=== PATIENT | female | born 1985 | race Caucasian/White ===

== ENCOUNTER 2019-06-17 11:44 | Emergency (ER) | payer MEDICAID ==
[~2019-06-17] VITALS: Ht 157.5 cm; Wt 46.4 kg
[~2019-06-17 11:44] MED LIST: DOCU-144 PO; IBUP-1561 PO
[2019-06-17 12:13] VITALS: BP 118/59; PULSE 76; RESP 20; Ht 157.5 cm; Wt 46.4 kg
[2019-06-17] MEDS ORDERED: ACETAMINOPHEN 500 MG TAB PO STA (13:30)
[2019-06-17] MEDS ORDERED: AZITHROMYCIN 500 MG TAB PO ONE (17:00)
[2019-06-17] MEDS ORDERED: CEFTRIAXONE 250 MG INJ IM ONE (17:00)
[2019-06-17] MEDS ORDERED: LIDOCAINE 1% (MDV) 20 ML INJ SC ONE (17:00)
== END 2019-06-17 17:38 | disposition home or self-care (01) ==
LOC: FTE 11:44
DX: R10.32 Left lower quadrant pain (principal)
CPT/HCPCS: 36415; 74176; 76830; 76856; 80053; 81001; 81025; 83690; 85025; 87591; 96372; J0696; Z7502; Z7610